=== PATIENT | female | born 1975 | race Caucasian/White ===

== ENCOUNTER 2016-12-12 10:12 | Emergency (ER) | payer OTHER | END 2016-12-12 12:35 | disposition home or self-care (01) | LOC: ER1 10:12 | DX: L29.9 Pruritus, unspecified (principal); T39.8X5A Adverse effect of other nonopioid analgesics and antipyretics, not elsewhere classified, initial encounter; F17.200 Nicotine dependence, unspecified, uncomplicated | CPT/HCPCS: 96372; 99282; J2930; Q0163 ==